=== PATIENT | female | born 1990 | race Caucasian/White ===

== ENCOUNTER → 2016-10-05 | Outpatient (CLI) | payer OTHER ==
[~2016-10-05] MED LIST: ACETAMINOPHEN325 MG; ACETAMINOPHEN325 MG PO; ADVIL200 MG PO; AMOXICILLIN875 MG PO; APNO TOP; ATIVAN 0.5MG0.5 MG PO; CALCIUM CARBON500 MG PO; LANSINOH7 GM TOP; PERCOCET 5-3251 EACH PO; PRENATAL 1+1)(P1 TAB PO; SURFAK240 MG PO
== END | disposition disaster alternative care site (69) ==
LOC: GRAD 12:46
DX: E04.1 Nontoxic single thyroid nodule (principal)